=== PATIENT | male | born 1940 | race Two or more races ===

== ENCOUNTER 2018-06-25 11:23 | Emergency (ER) | payer OTHER ==
[~2018-06-25] VITALS: Ht 167.6 cm; Wt 86.2 kg
[~2018-06-25 11:23] MED LIST: LEVAQUIN750 MG PO; ULTRACET PO
[2018-06-25] MEDS ORDERED: SEROQUEL XR300 MG (12:19)
[2018-06-25] MEDS ORDERED: SIMVASTATIN5 MG (12:20)
[2018-06-25] MEDS ORDERED: LAMICTAL XR25 MG (12:20)
[2018-06-25] MEDS ORDERED: CALCIUM600 MG (12:21)
[2018-06-25] MEDS ORDERED: EFFEXOR XR150 MG (12:21)
[2018-06-25] MEDS ORDERED: CLONAZEPAM0.5 M1 (12:21)
[2018-06-25] MEDS ORDERED: LEVSIN/SL0.125 MG SL (18:24)
[2018-06-25] MEDS ORDERED: INTESTINEX680 M1 PO (18:24)
[2018-06-25] MEDS ORDERED: PEPCID AC20 MG PO (18:24)
== END 2018-06-25 20:15 | disposition home or self-care (01) ==
LOC: ER 11:23
DX: R10.13 Epigastric pain (principal)